=== PATIENT | male | born 1955 | race Hispanic/Latino ===

== ENCOUNTER 2018-12-18 11:20 | Emergency (ER) | payer BC ==
[2018-12-18] MEDS ORDERED: ACETAMINOPHEN 500 MG TAB ONE (12:41)
[2018-12-18] MEDS ORDERED: predniSONE 20 MG TAB ONE (12:41)
[2018-12-18] MEDS ORDERED: LIDOCAINE 1% W/EPI 1:100,000 MDV 50 ML VIAL ONE (12:41)
[2018-12-18] MEDS ORDERED: BUPIVACA 0.5%/EPI 0.0005%/PF 30 ML VIAL IV ONE (12:45)
--- NOTE | 2018-12-18 12:59 | ER ---
Nurse's Notes [facility] Name: Khurram Zimmer Jr Age: 63 yrs Sex: Male : 1955 Arrival Date: 12/18/2018 Time: 11:24 Bed 5 Private MD: Bg Johnson T Diagnosis: Acute Left side occipital headache;L side occipital neuralgia Presentation: 12/18 11:29 Presenting complaint: Patient states: LEFT NECK PAIN x1 WK. Transition of care: patient bp was not received from another setting of care. Onset of symptoms is unknown. Risk Assessment: Do you want to hurt yourself or someone else? Patient reports no desire to harm self or others. Initial Sepsis Screen: Does the patient meet any 2 criteria? No. Patient's initial sepsis screen is negative. Does the patient have a suspected source of infection? No. Patient's initial sepsis screen is negative. Care prior to arrival: None. 11:29 Method Of Arrival: Ambulatory bp 11:29 Acuity: GLORY 4 bp Triage Assessment: 12:38 Pain: Pain began. tw2 13:06 Headache History: The patient has had previous headaches and this one is similar to tw2 previous episodes. General: Appears in no apparent distress. Pain: Also complains of no other associated symptoms. Historical: - Allergies: 11:31 No Known Allergies; bp - Home Meds: 11:31 Plavix 75 mg Oral tab [Active]; metoprolol succinate 50 mg oral Tb24 [Active]; bp rosuvastatin 40 mg oral tab 1 tab once daily [Active]; losartan 25 mg oral tab 1 tab once daily [Active]; - PMHx: 11:31 Myocardial infarction; Hypertension; bp - PSHx: 11:31 CABG; bp - Immunization history:: Adult Immunizations up to date. - Social history:: Smoking status: Patient/guardian denies using tobacco. - Ebola Screening: : No symptoms or risks identified at this time. - Family history:: not pertinent. - Hospitalizations: : No recent hospitalization is reported. Screenin:05 Abuse screen: Denies threats or abuse. Denies injuries from another. Nutritional ch screening: No deficits noted. Tuberculosis screening: No symptoms or risk factors identified. Fall Risk None identified. Assessment: 12:05 General: Appears in no apparent distress. comfortable, Behavior is calm, cooperative, ch appropriate for age. Pain: Complains of pain in back of neck Pain radiates to left parietal area, occipital area and base of the skull Pain currently is 8 out of 10 on a pain scale. Neuro: Level of Consciousness is awake, alert, obeys commands, Oriented to person, place, time, situation, Assistant District Attorney are equal bilaterally Moves all extremities. Full function Gait is steady, Speech is normal, Facial symmetry appears normal, Facial symmetry: tongue is midline, Pupils are PERRLA. Respiratory: Airway is patent Respiratory effort is even, unlabored. GI: Abdomen is round non-distended, Bowel sounds present X 4 quads. Derm: Skin is pink, warm \T\ dry. Musculoskeletal: Circulation, motion, and sensation intact. Capillary refill < 3 seconds, in bilateral fingers. toes. 12:38 Reassessment: awaiting medication from pharmacy at this time. tw2 12:56 Reassessment: Patient appears in no apparent distress at this time. No changes from tw2 previously documented assessment. Patient and/or family updated on plan of care and expected duration. Pain level reassessed. Patient is alert, oriented x 3, equal unlabored respirations, skin warm/dry/pink. Vital Signs: 11:31 BP 165 / 79; Pulse 52; Resp 16; Temp 98; Pulse Ox 98% ; Weight 90.72 kg; Height 5 ft. 6 bp in. (167.64 cm); 12:05 BP 152 / 78; Pulse 55; Resp 14; Temp 98.2; Pulse Ox 98% on R/A; Pain 8/10; ch 12:56 BP 136 / 67; Pulse 48; Resp 17; Pulse Ox 99% on R/A; tw2 11:31 Body Mass Index 32.28 (90.72 kg, 167.64 cm) bp ED Course: 11:24 Patient arrived in ED. mr 11:25 Bg Johnson MD is Private Physician. mr 11:30 Triage completed. bp 11:31 Arm band placed on. bp 11:40 Mirella Schwarz, ANGEL is Primary Nurse. ch 11:42 Nigel Mendieta MD is Attending Physician. wa 12:05 Patient has correct armband on for positive identification. Bed in low position. Call light in reach. Side rails up X 1. Adult w/ patient. Pulse ox on. NIBP on. PO fluids given. 13:05 No provider procedures requiring assistance completed. Patient did not have IV access tw2 during this emergency room visit. Administered Medications: 12:31 Drug: predniSONE 40 mg Route: PO; tw2 12:56 Follow up: Response: No adverse reaction tw2 12:31 Drug: Tylenol 1000 mg Route: PO; tw2 12:56 Follow up: Response: No adverse reaction tw2 12:50 Drug: Bupivacaine-Epinephrine (0.5 %) 50 ml {Note: administered by Dr. Mendieta.} Route: tw2 Infiltration; Outcome: 12:58 Discharge ordered by . erica 13:05 Discharged to home ambulatory, with family. tw2 13:05 Condition: stable 13:05 Discharge instructions given to patient, family, Instructed on discharge instructions, follow up and referral plans. medication usage, Demonstrated understanding of instructions, follow-up care, medications, Prescriptions given X 1. 13:06 Patient left the ED. tw2 Signatures: Mirella Schwarz RN RN Monica Rogers Tara, RN RN tw2 Nigel Mendieta MD MD wa Peltier, Brian RN RN bp
--- NOTE | 2018-12-18 12:59 | EDPHYS ---
Physician Documentation [facility] Name: Khurram Zimmer Jr Age: 63 yrs Sex: Male : 1955 Arrival Date: 12/18/2018 Time: 11:24 Bed 5 Private MD: Bg Johnson T ED Physician Nigel Mendieta HPI: 12/18 12:49 This 63 yrs old Male presents to ER via Ambulatory with complaints of wa Headache, Neck Problem. 12:49 The patient complains of pain to the left base of the skull and occipital area. The wa patient describes the headache as aching. Onset: The symptoms/episode began/occurred 2 day(s) ago. Associated signs and symptoms: The patient has no apparent associated signs or symptoms. Severity of symptoms: At its worst the pain was moderate, in the emergency department the pain is unchanged. Headache History: Denies prior headaches. The symptoms are alleviated by nothing. the symptoms are aggravated by movement of heat to the left. The patient has not experienced similar symptoms in the past. The patient has not recently seen a physician. c/o pain L occipital area. worse to touch and movement. Historical: - Allergies: 11:31 No Known Allergies; bp - Home Meds: 11:31 Plavix 75 mg Oral tab [Active]; metoprolol succinate 50 mg oral Tb24 [Active]; bp rosuvastatin 40 mg oral tab 1 tab once daily [Active]; losartan 25 mg oral tab 1 tab once daily [Active]; - PMHx: 11:31 Myocardial infarction; Hypertension; bp - PSHx: 11:31 CABG; bp - Immunization history:: Adult Immunizations up to date. - Social history:: Smoking status: Patient/guardian denies using tobacco. - Ebola Screening: : No symptoms or risks identified at this time. - Family history:: not pertinent. - Hospitalizations: : No recent hospitalization is reported. ROS: 12:52 Constitutional: Negative for fever, chills, and weight loss, Eyes: Negative for injury, wa pain, redness, and discharge, ENT: Negative for injury, pain, and discharge, Neck: Negative for injury, pain, and swelling, Cardiovascular: Negative for chest pain, palpitations, and edema, Respiratory: Negative for shortness of breath, cough, wheezing, and pleuritic chest pain, Abdomen/GI: Negative for abdominal pain, nausea, vomiting, diarrhea, and constipation, Back: Negative for injury and pain, : Negative for injury, bleeding, discharge, and swelling, MS/Extremity: Negative for injury and deformity, Neuro: Negative for headache, weakness, numbness, tingling, and seizure, Psych: Negative for depression, anxiety, suicide ideation, homicidal ideation, and hallucinations. 12:52 Skin: Positive for of the L base of the skull. Exam: 12:53 Constitutional: This is a well developed, well nourished patient who is awake, alert, wa and in no acute distress. Eyes: Pupils equal round and reactive to light, extra-ocular motions intact. Lids and lashes normal. Conjunctiva and sclera are non-icteric and not injected. Cornea within normal limits. Periorbital areas with no swelling, redness, or edema. ENT: Nares patent. No nasal discharge, no septal abnormalities noted. Tympanic membranes are normal and external auditory canals are clear. Oropharynx with no redness, swelling, or masses, exudates, or evidence of obstruction, uvula midline. Mucous membranes moist. Neck: Trachea midline, no thyromegaly or masses palpated, and no cervical lymphadenopathy. Supple, full range of motion without nuchal rigidity, or vertebral point tenderness. No Meningismus. Chest/axilla: Normal chest wall appearance and motion. Nontender with no deformity. No lesions are appreciated. Cardiovascular: Regular rate and rhythm with a normal S1 and S2. No gallops, murmurs, or rubs. Normal PMI, no JVD. No pulse deficits. Respiratory: Lungs have equal breath sounds bilaterally, clear to auscultation and percussion. No rales, rhonchi or wheezes noted. No increased work of breathing, no retractions or nasal flaring. Abdomen/GI: Soft, non-tender, with normal bowel sounds. No distension or tympany. No guarding or rebound. No evidence of tenderness throughout. Back: No spinal tenderness. No costovertebral tenderness. Full range of motion. Skin: Warm, dry with normal turgor. Normal color with no rashes, no lesions, and no evidence of cellulitis. MS/ Extremity: Pulses equal, no cyanosis. Neurovascular intact. Full, normal range of motion. Neuro: Awake and alert, GCS 15, oriented to person, place, time, and situation. Cranial nerves II-XII grossly intact. Motor strength 5/5 in all extremities. Sensory grossly intact. Cerebellar exam normal. Normal gait. 12:53 Head/face: Noted is tenderness, of the left base of the skull. Vital Signs: 11:31 BP 165 / 79; Pulse 52; Resp 16; Temp 98; Pulse Ox 98% ; Weight 90.72 kg; Height 5 ft. 6 bp in. (167.64 cm); 12:05 BP 152 / 78; Pulse 55; Resp 14; Temp 98.2; Pulse Ox 98% on R/A; Pain 8/10; ch 12:56 BP 136 / 67; Pulse 48; Resp 17; Pulse Ox 99% on R/A; tw2 11:31 Body Mass Index 32.28 (90.72 kg, 167.64 cm) bp Procedures: 12:55 Performed nerve block: occipital nerve on the L side. cleaned area with chlorhexadine. wa 2 cc of 0.5% bupivacaine with epi applied to area of the nerve in a wheal. massaged for spread. pt tolerated procedure well. MDM: 11:42 Patient medically screened. wa 12:54 Differential diagnosis: point tender. also pain with movement. no chest pain, wa dizziness, or SOB. suspect occipital neuralgia on the left side. will attempt nerve block. prednisone as antiinflammatory. Data reviewed: vital signs, nurses notes. Administered Medications: 12:31 Drug: predniSONE 40 mg Route: PO; tw2 12:56 Follow up: Response: No adverse reaction tw2 12:31 Drug: Tylenol 1000 mg Route: PO; tw2 12:56 Follow up: Response: No adverse reaction tw2 12:50 Drug: Bupivacaine-Epinephrine (0.5 %) 50 ml {Note: administered by Dr. Mendieta.} Route: tw2 Infiltration; Disposition: 12/18/18 12:58 Discharged to Home. Impression: Acute Left side occipital headache, L side occipital neuralgia. - Condition is Stable. - Discharge Instructions: Occipital Neuralgia. - Prescriptions for Prednisone 20 mg Oral Tablet - take 2 tablets by ORAL route once daily for 3 days; 6 tablet. - Work release form, Medication Reconciliation Form, Thank You Letter, Antibiotic Education, Prescription Opioid Use form. - Follow up: Private Physician; When: 1 - 2 days; Reason: Re-evaluation by your physician. - Problem is new. - Symptoms have improved. - Notes: take the medication as prescribed. see your doctor within 3 days if pain does not improve Signatures: Mariah Lui, RN RN tw2 Nigel Mendieta MD MD wa Peltier, Brian, RN RN bp Corrections: (The following items were deleted from the chart) 13:06 12:58 12/18/2018 12:58 Discharged to Home. Impression: Acute Left side occipital tw2 headache; L side occipital neuralgia. Condition is Stable. Forms are Medication Reconciliation Form, Thank You Letter, Antibiotic Education, Prescription Opioid Use. Follow up: Private Physician; When: 1 - 2 days; Reason: Re-evaluation by your physician. Problem is new. Symptoms have improved. erica
[2018-12-18 13:22] VITALS: TEMP 98.2
[2018-12-18 13:24] VITALS: BP 136/67; O2SAT 99
== END 2018-12-18 13:06 | disposition home or self-care (01) ==
LOC: ER 11:20
DX: M54.81 Occipital neuralgia (principal); I10 Essential (primary) hypertension; I25.2 Old myocardial infarction
CPT/HCPCS: 99283; J7512

== ENCOUNTER 2019-08-13 05:50 | Emergency (ER) | payer BC ==
[2019-08-13] MEDS ORDERED: ACETAMINOPHEN 500 MG TAB ONE (06:20)
[2019-08-13] MEDS ORDERED: ALBUTEROL 2.5 MG/3 ML NEB SOL ONE (06:48)
[2019-08-13] MEDS ORDERED: predniSONE 20 MG TAB ONE (06:48)
--- NOTE | 2019-08-13 07:26 | ER ---
Nurse's Notes [facility] Name: Khurram Zimmer Jr Age: 63 yrs Sex: Male : 1955 Arrival Date: 08/13/2019 Time: 05:52 Bed 6 Private MD: Diagnosis: Pneumonia due to other specified bacteria Presentation: 08/13 06:02 Presenting complaint: Patient states: he's been coughing since Tuesday with a cough bb productive of mucous and he is feeling light-headed denies vomiting or congestion. Transition of care: patient was not received from another setting of care. Onset of symptoms was August 11, 2019. Risk Assessment: Do you want to hurt yourself or someone else? Patient reports no desire to harm self or others. Initial Sepsis Screen: Does the patient meet any 2 criteria? No. Patient's initial sepsis screen is negative. Does the patient have a suspected source of infection? No. Patient's initial sepsis screen is negative. Care prior to arrival: None. 06:02 Method Of Arrival: Ambulatory bb 06:02 Acuity: GLORY 3 bb Historical: - Allergies: 06:08 No Known Allergies; bb - Home Meds: 06:08 losartan 25 mg Oral tab 1 tab once daily [Active]; metoprolol succinate 50 mg Oral Tb24 bb [Active]; Plavix 75 mg Oral tab [Active]; rosuvastatin 40 mg Oral tab 1 tab once daily [Active]; - PMHx: 06:08 Hypertension; Myocardial infarction; CAD; bb - PSHx: 06:08 CABG; knee; bb - Immunization history:: Adult Immunizations up to date, Flu vaccine is not up to date. - Coronavirus screen:: The patient has NOT traveled to [place], [place], or [place] in the past 14 days. Proceed with normal triage process as indicated. - Social history:: Smoking status: Patient reports the use of cigarette tobacco products, denies chronic smoking, but will smoke occasionally. - Ebola Screening: : No symptoms or risks identified at this time. Screenin:15 Abuse screen: Denies threats or abuse. Denies injuries from another. Nutritional aa1 screening: No deficits noted. Tuberculosis screening: No symptoms or risk factors identified. Fall Risk None identified. Assessment: 06:15 General: Appears in no apparent distress. comfortable, Behavior is calm, cooperative, aa1 appropriate for age. Pain: Denies pain. Neuro: Level of Consciousness is awake, alert, obeys commands, Oriented to person, place, time, situation, Moves all extremities. Full function Gait is steady. Respiratory: Reports cough that is productive, Airway is patent Respiratory effort is even, unlabored, Respiratory pattern is regular, symmetrical, Breath sounds are clear bilaterally. GI: No signs and/or symptoms were reported involving the gastrointestinal system. : No signs and/or symptoms were reported regarding the genitourinary system. EENT: No signs and/or symptoms were reported regarding the EENT system. Derm: Skin is intact, is healthy with good turgor, Skin is pink, warm \T\ dry. Musculoskeletal: Circulation, motion, and sensation intact. Capillary refill < 3 seconds. 07:05 Reassessment: Patient appears in no apparent distress at this time. Patient and/or em family updated on plan of care and expected duration. Pain level reassessed. Patient is alert, oriented x 3, equal unlabored respirations, skin warm/dry/pink. Patient states feeling better. Patient states symptoms have improved. Vital Signs: 06:08 BP 119 / 68; Pulse 84; Resp 20 S; Temp 101.3(O); Pulse Ox 96% on R/A; Weight 95.25 kg bb (R); Height 5 ft. 6 in. (167.64 cm) (R); Pain 4/10; 07:11 BP 124 / 66; Pulse 70; Resp 16; Temp 99.9(O); Pulse Ox 97% on R/A; em 06:08 Body Mass Index 33.89 (95.25 kg, 167.64 cm) bb ED Course: 05:52 Patient arrived in ED. ds1 06:06 Triage completed. bb 06:08 Arm band placed on Patient placed in an exam room, on a stretcher, on pulse oximetry. bb 06:10 Pierce Lopez PA is PHCP. jr8 06:10 Fransisco Ruby MD is Attending Physician. jr8 06:15 Patient has correct armband on for positive identification. Bed in low position. Call aa1 light in reach. Pulse ox on. NIBP on. 07:09 Ramon Back RN is Primary Nurse. em 07:42 No provider procedures requiring assistance completed. Patient did not have IV access em during this emergency room visit. Administered Medications: 06:18 Drug: Tylenol 1000 mg Route: PO; aa1 07:10 Follow up: Response: Temperature is unchanged em 06:54 Drug: Albuterol 2.5 mg Route: Inhalation; aa1 07:10 Follow up: Response: No adverse reaction; Marked relief of symptoms em 06:54 Drug: predniSONE 40 mg Route: PO; aa1 07:10 Follow up: Response: No adverse reaction em Outcome: 07:25 Discharge ordered by MD. loja 07:42 Discharged to home ambulatory, with family. em 07:42 Condition: good 07:42 Discharge instructions given to patient, Instructed on discharge instructions, follow up and referral plans. medication usage, Demonstrated understanding of instructions, follow-up care, medications, Prescriptions given X 3. 07:43 Patient left the ED. em Signatures: Kathy Frazier RN RN aa1 Ramon Back RN RN em Sanford, Demi ds1 Emeli Ward RN RN bb Roszak, Josh, PA PA jr8
--- NOTE | 2019-08-13 07:26 | EDPHYS ---
Physician Documentation [facility] Name: Khurram Zimmer Jr Age: 63 yrs Sex: Male : 1955 Arrival Date: 08/13/2019 Time: 05:52 Bed 6 Private MD: ED Physician Fransisco Ruby HPI: 08/13 07:09 This 63 yrs old Male presents to ER via Ambulatory with complaints of Flu jr8 Symptoms. 07:09 Onset: The symptoms/episode began/occurred acutely, 2 day(s) ago. Associated signs and jr8 symptoms: Pertinent positives: cough, fever. Modifying factors: The patient symptoms are alleviated by nothing, the patient symptoms are aggravated by nothing. The patient has not experienced similar symptoms in the past. The patient has not recently seen a physician. Historical: - Allergies: 06:08 No Known Allergies; bb - Home Meds: 06:08 losartan 25 mg Oral tab 1 tab once daily [Active]; metoprolol succinate 50 mg Oral Tb24 bb [Active]; Plavix 75 mg Oral tab [Active]; rosuvastatin 40 mg Oral tab 1 tab once daily [Active]; - PMHx: 06:08 Hypertension; Myocardial infarction; CAD; bb - PSHx: 06:08 CABG; knee; bb - Immunization history:: Adult Immunizations up to date, Flu vaccine is not up to date. - Coronavirus screen:: The patient has NOT traveled to [place], [place], or [place] in the past 14 days. Proceed with normal triage process as indicated. - Social history:: Smoking status: Patient reports the use of cigarette tobacco products, denies chronic smoking, but will smoke occasionally. - Ebola Screening: : No symptoms or risks identified at this time. ROS: 07:09 Eyes: Negative for injury, pain, redness, and discharge, ENT: Negative for injury, jr8 pain, and discharge, Neck: Negative for injury, pain, and swelling, Cardiovascular: Negative for chest pain, palpitations, and edema, Abdomen/GI: Negative for abdominal pain, nausea, vomiting, diarrhea, and constipation, Back: Negative for injury and pain, MS/Extremity: Negative for injury and deformity, Skin: Negative for injury, rash, and discoloration, Neuro: Negative for headache, weakness, numbness, tingling, and seizure. 07:09 Constitutional: Positive for fever. 07:09 Respiratory: Positive for cough, Negative for dyspnea on exertion, shortness of breath, sputum production. Exam: 07:09 Eyes: Pupils equal round and reactive to light, extra-ocular motions intact. Lids and jr8 lashes normal. Conjunctiva and sclera are non-icteric and not injected. Cornea within normal limits. Periorbital areas with no swelling, redness, or edema. ENT: Nares patent. No nasal discharge, no septal abnormalities noted. Tympanic membranes are normal and external auditory canals are clear. Oropharynx with no redness, swelling, or masses, exudates, or evidence of obstruction, uvula midline. Mucous membranes moist. Neck: Trachea midline, no thyromegaly or masses palpated, and no cervical lymphadenopathy. Supple, full range of motion without nuchal rigidity, or vertebral point tenderness. No Meningismus. Cardiovascular: Regular rate and rhythm with a normal S1 and S2. No gallops, murmurs, or rubs. Normal PMI, no JVD. No pulse deficits. Abdomen/GI: Soft, non-tender, with normal bowel sounds. No distension or tympany. No guarding or rebound. No evidence of tenderness throughout. Back: No spinal tenderness. No costovertebral tenderness. Full range of motion. Skin: Warm, dry with normal turgor. Normal color with no rashes, no lesions, and no evidence of cellulitis. MS/ Extremity: Pulses equal, no cyanosis. Neurovascular intact. Full, normal range of motion. Neuro: Awake and alert, GCS 15, oriented to person, place, time, and situation. Cranial nerves II-XII grossly intact. Motor strength 5/5 in all extremities. Sensory grossly intact. Cerebellar exam normal. Normal gait. 07:09 Respiratory: the patient does not display signs of respiratory distress, Respirations: normal, symetrical, no use of accessory muscles, no grunting, no evidence of nasal flaring, no prolonged exhalations, no pursed lip breathing, no retractions, no shallow respirations, no splinting, no tachypnea, Breath sounds: wheezing: expiratory that is mild, is heard diffusely. Vital Signs: 06:08 BP 119 / 68; Pulse 84; Resp 20 S; Temp 101.3(O); Pulse Ox 96% on R/A; Weight 95.25 kg bb (R); Height 5 ft. 6 in. (167.64 cm) (R); Pain 4/10; 07:11 BP 124 / 66; Pulse 70; Resp 16; Temp 99.9(O); Pulse Ox 97% on R/A; em 06:08 Body Mass Index 33.89 (95.25 kg, 167.64 cm) bb MDM: 06:10 Patient medically screened. jr8 07:09 Differential diagnosis: viral Infection, bacterial infection, URI, bronchitis, jr8 pneumonia. Data reviewed: vital signs, nurses notes, lab test result(s), radiologic studies, plain films. Data interpreted: Pulse oximetry: on room air is 96 %. Interpretation: normal. Counseling: I had a detailed discussion with the patient and/or guardian regarding: the historical points, exam findings, and any diagnostic results supporting the discharge/admit diagnosis, lab results, radiology results, the need for outpatient follow up, a family practitioner, to return to the emergency department if symptoms worsen or persist or if there are any questions or concerns that arise at home. ED course: Small amount of hazing at base of right lung. Post treatment has mild crackle to right lung base. Suggestive of pneumonia at this time. Flu negative. Will treat as pneumonia. 08/13 06:06 Order name: Flu aa1 08/13 06:55 Order name: Influenza Screen (A ; Complete Time: 07:00 EDMS 02 06:11 Order name: XRAY Chest (1 view) jr8 Administered Medications: 06:18 Drug: Tylenol 1000 mg Route: PO; aa1 07:10 Follow up: Response: Temperature is unchanged em 06:54 Drug: Albuterol 2.5 mg Route: Inhalation; aa1 07:10 Follow up: Response: No adverse reaction; Marked relief of symptoms em 06:54 Drug: predniSONE 40 mg Route: PO; aa1 07:10 Follow up: Response: No adverse reaction em Disposition: 15:19 Co-signature as Attending Physician, Fransisco Ruby MD I agree with the assessment and tw4 plan of care. Disposition: 08/13/19 07:25 Discharged to Home. Impression: Pneumonia due to other specified bacteria. - Condition is Stable. - Discharge Instructions: Community-Acquired Pneumonia, Adult. - Prescriptions for Prednisone 20 mg Oral Tablet - take 1 tablet by ORAL route once daily for 5 days; 5 tablet. Zithromax Z- Magdy 250 mg Oral Tablet - take 1 tablet by ORAL route as directed for 5 days Day 1 - take two (2) tablets one time. Day 2, 3, 4 , 5 take one (1) tablet once daily.; 6 tablet. Albuterol Sulfate 90 mcg/actuation - inhale 1-2 puff by INHALATION route every 4-6 hours; 1 Inhaler. - Work release form, Medication Reconciliation Form, Thank You Letter, Antibiotic Education, Prescription Opioid Use form. - Follow up: Private Physician; When: 1 week; Reason: Recheck today's complaints, Continuance of care, Re-evaluation by your physician. - Problem is new. - Symptoms have improved. Signatures: Dispatcher [employer] Kathy Varela RN RN aa1 Ramon Back RN Emeli Melendrez RN RN Pierce Nuñez PA PA jr8 Fransisco Ruby MD MD tw4 Corrections: (The following items were deleted from the chart) 07:43 07:25 08/13/2019 07:25 Discharged to Home. Impression: Pneumonia due to other specified em bacteria. Condition is Stable. Forms are Work release form, Medication Reconciliation Form, Thank You Letter, Antibiotic Education, Prescription Opioid Use. Follow up: Private Physician; When: 1 week; Reason: Recheck today's complaints, Continuance of care, Re-evaluation by your physician. Problem is new. Symptoms have improved. jr8
[2019-08-13 07:50] VITALS: BP 124/66; TEMP 99.9; O2SAT 97
--- NOTE | 2019-08-13 08:24 | RAD REPORT ---
EXAM DESCRIPTION: Priscilla Single View08/13/2019 6:31 am CLINICAL HISTORY: Cough COMPARISON: 2017 FINDINGS: The lungs appear clear of acute infiltrate. The heart is mildly enlarged. Postsurgical changes involve the chest. Old right clavicular fracture IMPRESSION: No acute abnormalities displayed
== END 2019-08-13 07:43 | disposition home or self-care (01) ==
LOC: ER 05:50
DX: J15.8 Pneumonia due to other specified bacteria (principal); I10 Essential (primary) hypertension; Z72.0 Tobacco use; Z79.01 Long term (current) use of anticoagulants; Z95.1 Presence of aortocoronary bypass graft
CPT/HCPCS: 71045; 87804; 99284; J7512

== ENCOUNTER 2022-03-06 11:33 | Emergency (ER) | payer BC, OTHER ==
--- NOTE | 2022-03-06 14:21 | ER ---
Nurse's Notes [facility] Name: Khurram Zimmer Jr Age: 66 yrs Sex: Male : 1955 Arrival Date: 03/06/2022 Time: 11:36 Bed 10 Private MD: Diagnosis: SARS-associated coronavirus as the cause of diseases classified elsewhere Presentation: 03/06 11:46 Chief complaint: Patient states: I started having body aches, chills, and a runny nose iw a few days ago. Everyone at work has COVID so I went to the drive through testing at [employer] and they said it was negative but I still feel weak and tired and sick. Coronavirus screen: Client presents with at least one sign or symptom that may indicate coronavirus-19. Standard/surgical mask placed on the client. The client reports previous COVID testing was negative. Date of collection: March 04, 2022. Ebola Screen: No symptoms or risks identified at this time. Initial Sepsis Screen: Does the patient meet any 2 criteria? No. Patient's initial sepsis screen is negative. Does the patient have a suspected source of infection? No. Patient's initial sepsis screen is negative. Risk Assessment: Do you want to hurt yourself or someone else? Patient reports no desire to harm self or others. Onset of symptoms was March 04, 2022. Care prior to arrival: Medication(s) given: Nyquil \\T\\ 0930. 11:46 Method Of Arrival: Ambulatory iw 11:46 Acuity: GLORY 4 iw Triage Assessment: 11:48 General: Appears in no apparent distress. comfortable, Behavior is calm, cooperative, iw appropriate for age. Pain: Denies pain. EENT: Reports nasal congestion nasal discharge. Neuro: No deficits noted. Cardiovascular: No deficits noted. Chest pain is denied. Respiratory: Airway is patent Respiratory effort is even, unlabored, Respiratory pattern is regular, symmetrical, Denies cough, shortness of breath at rest, on exertion. GI: No deficits noted. No signs and/or symptoms were reported involving the gastrointestinal system. : No deficits noted. No signs and/or symptoms were reported regarding the genitourinary system. Derm: No deficits noted. No signs and/or symptoms reported regarding the dermatologic system. Musculoskeletal: No deficits noted. No signs and/or symptoms reported regarding the musculoskeletal system. Historical: - Allergies: 11:48 No Known Allergies; iw - Home Meds: 11:48 losartan 25 mg Oral tab 1 tab once daily [Active]; metoprolol succinate 50 mg Oral Tb24 iw [Active]; Plavix 75 mg Oral tab [Active]; rosuvastatin 40 mg Oral tab 1 tab once daily [Active]; - PMHx: 11:48 CAD; Hypertension; Myocardial infarction; iw - PSHx: 11:48 Coronary artery bypass graft; iw - Immunization history:: Adult Immunizations up to date, Client reports receiving the 2nd dose of the Covid vaccine, Client reports receiving the 1st dose of the Covid vaccine. - Social history:: Smoking status: Patient denies any tobacco usage or history of. Screenin:29 Abuse screen: Denies threats or abuse. Denies injuries from another. Nutritional iw screening: No deficits noted. Tuberculosis screening: No symptoms or risk factors identified. Fall Risk None identified. Assessment: 14:00 General: Appears in no apparent distress. distressed, Behavior is calm, cooperative. iw General: Reports feeling ill for 1-2 days. Neuro: Level of Consciousness is awake, alert, obeys commands, Oriented to person, place, time, situation, Moves all extremities. Full function. Cardiovascular: Patient's skin is warm and dry. Respiratory: Respiratory effort is even, unlabored, Respiratory pattern is regular, symmetrical. Derm: Skin is intact, is healthy with good turgor. Musculoskeletal: Range of motion: intact in all extremities. Vital Signs: 11:46 BP 129 / 67; Pulse 66; Resp 16; Temp 98.2(O); Pulse Ox 100% on R/A; Weight 90.26 kg iw (R); Height 5 ft. 5 in. (165.10 cm); Pain 0/10; 11:46 Body Mass Index 33.11 (90.26 kg, 165.10 cm) iw ED Course: 11:36 Patient arrived in ED. as 11:45 Shahriar Villarreal MD is Attending Physician. kdr 11:48 Triage completed. iw 11:48 Arm band placed on left wrist. iw 11:51 COVID swab sent to lab. iw 12:13 COVID-19 SARS RT PCR (Document "Date of Onset" if Symptomatic) Sent. zm 12:57 COVID-19 SARS RT PCR (Document "Date of Onset" if Symptomatic) Sent. zm 14:00 Patient has correct armband on for positive identification. iw 14:28 Preeti Neely, RN is Primary Nurse. iw 14:29 No provider procedures requiring assistance completed. Patient did not have IV access iw during this emergency room visit. Administered Medications: No medications were administered Medication: 14:36 VIS not applicable for this client. iw Outcome: 14:20 Discharge ordered by . anthony 14:29 Discharged to home ambulatory. iw 14:29 Condition: good 14:29 Discharge instructions given to patient, Instructed on discharge instructions, follow up and referral plans. Demonstrated understanding of instructions, follow-up care. 14:30 Patient left the ED. iw Signatures: Shahriar Villarreal MD MD kdr Martinez, Amelia as Preeti Neely, RN RN iw Shahnaz Hedrick
--- NOTE | 2022-03-06 14:21 | EDPHYS ---
Physician Documentation [facility] Name: Khurram Zimmer Jr Age: 66 yrs Sex: Male : 1955 Arrival Date: 03/06/2022 Time: 11:36 Bed 10 Private MD: ED Physician Shahriar Villarreal HPI: 03/06 15:55 This 66 yrs old Male presents to ER via Ambulatory with complaints of Weakness.kdr 15:55 The patient presents to the emergency department with weakness of the entire body, kdr generalized weakness. Onset: The symptoms/episode began/occurred gradually. Context: occurred at home, occurred while the patient was at rest. Associated signs and symptoms: Pertinent positives: chills, fever, headache. Severity of symptoms: At their worst the symptoms were very mild in the emergency department the symptoms are unchanged. Patient's baseline: Neuro: alert and fully oriented, Motor: no deficits. Current symptoms: . The patient has experienced similar episodes in the past, multiple times. Patient states that he started having body aches, chills and runny nose a few days ago. Everyone he works with has been diagnosed with COVID. He went home and had a test done at [facility] and was told that the test was negative. Despite this (on Tuesday) he began to have COVID-like symptoms.. Historical: - Allergies: 11:48 No Known Allergies; iw - Home Meds: 11:48 losartan 25 mg Oral tab 1 tab once daily [Active]; metoprolol succinate 50 mg Oral Tb24 iw [Active]; Plavix 75 mg Oral tab [Active]; rosuvastatin 40 mg Oral tab 1 tab once daily [Active]; - PMHx: 11:48 CAD; Hypertension; Myocardial infarction; iw - PSHx: 11:48 Coronary artery bypass graft; iw - Immunization history:: Adult Immunizations up to date, Client reports receiving the 2nd dose of the Covid vaccine, Client reports receiving the 1st dose of the Covid vaccine. - Social history:: Smoking status: Patient denies any tobacco usage or history of. ROS: 15:55 Constitutional: Negative for fever, chills, and weight loss, Eyes: Negative for injury, kdr pain, redness, and discharge, ENT: Negative for injury, pain, and discharge, Neck: Negative for injury, pain, and swelling, Cardiovascular: Negative for chest pain, palpitations, and edema, Respiratory: Negative for shortness of breath, cough, wheezing, and pleuritic chest pain, Abdomen/GI: Negative for abdominal pain, nausea, vomiting, diarrhea, and constipation, Back: Negative for injury and pain, : Negative for injury, bleeding, discharge, and swelling, MS/Extremity: Negative for injury and deformity, Skin: Negative for injury, rash, and discoloration, Neuro: Negative for headache, weakness, numbness, tingling, and seizure activity. Allergy/Immunology: Negative for hives, rash, and allergies, Endocrine: Negative for neck swelling, polydipsia, polyuria, polyphagia, and marked weight changes, Hematologic/Lymphatic: Negative for swollen nodes, abnormal bleeding, and unusual bruising. Exam: 15:55 Constitutional: This is a well developed, well nourished patient who is awake, alert, kdr and in no acute distress. Head/Face: Normocephalic, atraumatic. Neck: Trachea midline, no thyromegaly or masses palpated, and no cervical lymphadenopathy. Supple, full range of motion without nuchal rigidity, or vertebral point tenderness. No Meningismus. Chest/axilla: Normal chest wall appearance and motion. Nontender with no deformity. No lesions are appreciated. Cardiovascular: Regular rate and rhythm with a normal S1 and S2. No gallops, murmurs, or rubs. Normal PMI, no JVD. No pulse deficits. Respiratory: Lungs have equal breath sounds bilaterally, clear to auscultation and percussion. No rales, rhonchi or wheezes noted. No increased work of breathing, no retractions or nasal flaring. Abdomen/GI: Soft, non-tender, with normal bowel sounds. No distension or tympany. No guarding or rebound. No evidence of tenderness throughout. Back: No spinal tenderness. No costovertebral tenderness. Full range of motion. Skin: Warm, dry with normal turgor. Normal color with no rashes, no lesions, and no evidence of cellulitis. MS/ Extremity: Pulses equal, no cyanosis. Neurovascular intact. Full, normal range of motion. Neuro: Awake and alert, GCS 15, oriented to person, place, time, and situation. Cranial nerves II-XII grossly intact. Motor strength 5/5 in all extremities. Sensory grossly intact. Cerebellar exam normal. Normal gait. Vital Signs: 11:46 BP 129 / 67; Pulse 66; Resp 16; Temp 98.2(O); Pulse Ox 100% on R/A; Weight 90.26 kg iw (R); Height 5 ft. 5 in. (165.10 cm); Pain 0/10; 11:46 Body Mass Index 33.11 (90.26 kg, 165.10 cm) iw MDM: 14:20 Patient medically screened. kdr 15:55 Data reviewed: vital signs, nurses notes, lab test result(s), radiologic studies. kdr Counseling: I had a detailed discussion with the patient and/or guardian regarding: the historical points, exam findings, and any diagnostic results supporting the discharge/admit diagnosis, lab results, radiology results. 03/06 12:02 Order name: COVID-19 SARS RT PCR (Document "Date of Onset" if Symptomatic); Complete zm Time: 13:50 Administered Medications: No medications were administered Disposition Summary: 03/06/22 14:20 Discharge Ordered Location: Home kdr Problem: new kdr Symptoms: have improved kdr Condition: Stable kdr Diagnosis - SARS-associated coronavirus as the cause of diseases classified elsewhere kdr Followup: kdr - With: Private Physician - When: 2 - 3 days - Reason: If symptoms return, Further diagnostic work-up, Recheck today's complaints, Continuance of care, Re-evaluation by your physician Discharge Instructions: - Discharge Summary Sheet kdr - Form - Excuse from Work, School, or Physical Activity kdr - COVID-19 kdr - Things to Know about the COVID-19 Pandemic - [facility] kdr - 10 Things You Can Do to Manage Your COVID-19 Symptoms at Home - [facility] kdr - Viral Illness, Adult kdr - COVID-19: Quarantine vs. Isolation - [facility] kdr - Prevent the Spread of COVID-19 if You Are Sick - [facility] kdr Forms: - Medication Reconciliation Form kdr - Thank You Letter kdr - SBAR form iw - Work release form iw Signatures: Dispatcher [employer] Shahriar Jacobsen MD MD kdr Preeti Neely RN RN iw
[2022-03-06 16:08] VITALS: BP 129/67; TEMP 98.2; O2SAT 100
== END 2022-03-06 14:30 | disposition home or self-care (01) ==
LOC: ER 11:33
DX: U07.1 COVID-19 (principal); I10 Essential (primary) hypertension; Z95.1 Presence of aortocoronary bypass graft
CPT/HCPCS: 99283; U0003

== ENCOUNTER 2022-07-12 15:06 | Emergency (ER) | payer MEDICARE ==
--- OUTSIDE RECORDS SUMMARY | 2022-07-12 15:09 | XMS REPORT | Continuity of Care Document ---
:1955 Author Organization [facility] Address [address] Doe [address] [place] [id number] Care Team Providers Name Role Phone Unavailable Unavailable Unavailable Payers Payer Name Policy Type Policy Number Effective Date Expiration Date S yenni [facility] 2022-07-04 (MEDICARE 00:00:00 REPLACEMENT HMO) Problems This patient has no known problems. Allergies, Adverse Reactions, Alerts This patient has no known allergies or adverse reactions. Medications This patient has no known medications. Procedures This patient has no known procedures. Encounters Start End Encounter Admission Attending Care Care Encounter Source Date/Time Date/Time Type Type Clinicians Facility Department ID 2022-05-17 2022-05-17 Outpatient [facility] [id number] [facility] 00:00:00 00:00:00 [id number] [facility] Results This patient has no known results.
[2022-07-12] MEDS ORDERED: LIDOCAINE VISCOUS 2% SOLN 15 ML UDC ONE (16:05)
[2022-07-12] MEDS ORDERED: MAGNES/ALUMIN/SIMET 30ML UCUP ONE (16:05)
[2022-07-12 16:16] LABS: Absolute Lymphocytes (CBC) 1.8 K/uL (0.7-4.9); Hematocrit 40.6 % (39.6-49.0); Lymphocytes % 30.1 % (15.3-44.8); MCV 88.5 fL (80-100); MPV 7.7 fL (7.6-11.3); RBC Red Blood Cell Count 4.59 M/uL (4.33-5.43)
[2022-07-12 16:19] LABS: Protime INR 1.01
--- NOTE | 2022-07-12 16:36 | RAD REPORT ---
EXAM DESCRIPTION: RAD - Chest Single View - 07/12/2022 4:25 pm CLINICAL HISTORY: CHEST PAIN Chest pain. COMPARISON: Chest Single View dated 08/13/2019; Chest Pa And Lat (2 Views) dated 06/17/2017; Chest Si ngle View dated 05/23/2016; CHEST PA AND LAT 2 VIEW dated 12/16/2014 FINDINGS: Portable technique limits examination quality. The lungs are grossly clear. The heart is normal in size. No displaced fractures.Sternotomy wires. IMPRESSION: No acute intrathoracic process suspected.
[2022-07-12 16:55] LABS: ALT/SGPT 24 U/L (16-61); AST/SGOT 15 U/L (15-37); Albumin 3.8 g/dL (3.4-5.0); Alkaline Phosphatase 79 U/L (45-117); BUN Blood Urea Nitrogen 15 mg/dL (7-18); Bicarbonate 25 mmol/L (21-32); Bilirubin Total 0.3 mg/dL (0.2-1.0); Glomerular Filtration Rate 93 ml/min (=/>90); Glucose Level 144 mg/dL (74-106); Magnesium 2.2 mg/dL (1.6-2.4); NT PRO-BNP 178 pg/mL (<125); Potassium 3.6 mmol/L (3.5-5.1); Protein, Total 8.2 g/dL (6.4-8.2); Sodium Level 138 mmol/L (136-145); Troponin High Sensitivity 29.6 pg/mL (<58.9)
[2022-07-12 17:04] LABS: Bilirubin Direct < 0.1 mg/dL (0-0.2)
--- NOTE | 2022-07-12 18:27 | RAD REPORT ---
EXAM DESCRIPTION: US - Abdomen Exam Limited - 07/12/2022 6:17 pm CLINICAL HISTORY: EPIGASTRIC PAIN COMPARISON: Abdomen Exam Limited dated 05/23/2016 FINDINGS: The gallbladder demonstrates small gallstones with acoustic shadowing. No pericholecystic fluid or gallbladder wall thickening. The common bile duct is normal measuring 3 mm. The liver demonstrates no findings of intrahepatic biliary dilatation. IMPRESSION: Cholelithiasis.
--- NOTE | 2022-07-12 19:38 | EDPHYS ---
Physician Documentation [facility] Name: Khurram Zimmer Jr Age: 66 yrs Sex: Male : 1955 Arrival Date: 07/12/2022 Time: 15:10 Bed 7 Private MD: Tino [facility] ED Physician Mikey Starr HPI: 07/12 15:40 This 66 yrs old Male presents to ER via Ambulatory with complaints of cp Heartburn. 15:40 The patient or guardian reports chest pain that is located primarily in the substernal cp area, epigastric area. Onset: 1 week(s) ago. 15:40 The pain does not radiate. Associated signs and symptoms: Pertinent positives: nausea, cp Pertinent negatives: diaphoresis, lower extremity pain, lower extremity swelling, shortness of breath, syncope, vomiting. The chest pain is described as burning. Duration: The patient or guardian reports multiple episodes, that wax and wane. Modifying factors: the symptoms are aggravated by eating. Severity of pain: in the emergency department the pain has improved moderately. Historical: - Allergies: 15:18 No Known Allergies; ss - PMHx: 15:18 CAD; Hypertension; Myocardial infarction; ss - PSHx: 15:18 Coronary artery bypass graft; ss - Immunization history:: Client reports receiving the 2nd dose of the Covid vaccine. - Social history:: Smoking status: Patient reports the use of cigarette tobacco products, 2 cig/ day. ROS: 15:45 Constitutional: Negative for body aches, chills, fever, poor PO intake. cp 15:45 Eyes: Negative for injury, pain, redness, and discharge. cp 15:45 ENT: Negative for drainage from ear(s), ear pain, sore throat, difficulty swallowing, difficulty handling secretions. 15:45 Cardiovascular: Positive for chest pain, Negative for edema, palpitations. 15:45 Respiratory: Negative for cough, shortness of breath, wheezing. 15:45 Abdomen/GI: Positive for abdominal pain, nausea, of the epigastric area, Negative for diarrhea, constipation, anorexia. 15:45 Back: Negative for pain at rest, pain with movement. 15:45 Neuro: Negative for altered mental status, dizziness, headache, numbness, weakness. 15:45 All other systems are negative. Exam: 15:50 Constitutional: The patient appears in no acute distress, alert, awake, cp non-diaphoretic, non-toxic, well developed, well nourished. 15:50 Head/Face: Normocephalic, atraumatic. cp 15:50 Eyes: Periorbital structures: appear normal, Conjunctiva: normal, no exudate, no injection, Sclera: no appreciated abnormality, Lids and lashes: appear normal, bilaterally. 15:50 ENT: External ear(s): are unremarkable, Nose: is normal, Mouth: Lips: moist, Oral mucosa: moist, Posterior pharynx: Airway: no evidence of obstruction, patent. 15:50 Neck: ROM/movement: is normal, is supple, without pain, no range of motions limitations. 15:50 Chest/axilla: Inspection: normal, Palpation: is normal, no crepitus, no tenderness. 15:50 Cardiovascular: Rate: normal, Rhythm: regular, Edema: is not appreciated, JVD: is not appreciated. 15:50 Respiratory: the patient does not display signs of respiratory distress, Respirations: cp normal, no use of accessory muscles, no retractions, labored breathing, is not present, Breath sounds: are clear throughout, no decreased breath sounds, no stridor, no wheezing. 15:50 Abdomen/GI: Inspection: abdomen appears normal, Bowel sounds: active, all quadrants, Palpation: soft, in all quadrants, mild abdominal tenderness, in the epigastric area, rebound tenderness, is not appreciated, involuntary guarding, is not appreciated. 15:50 Back: pain, is absent, ROM is normal. 15:50 Neuro: Orientation: to person, place \T\ time. Mentation: is normal, Motor: moves all fours, strength is normal, Sensation: is normal. 16:20 ECG was reviewed by the Attending Physician. cp Vital Signs: 15:17 BP 159 / 70; Pulse 71; Resp 16; Temp 98.1(TE); Pulse Ox 100% on R/A; Weight 91.17 kg; ss Height 5 ft. 4 in. (162.56 cm); Pain 8/10; 16:32 BP 135 / 77; Pulse 57; Resp 17; Pulse Ox 100% ; ll1 18:00 BP 139 / 75; Pulse 50; ll1 18:45 BP 126 / 65; ll1 19:48 BP 140 / 66; Pulse 50; Resp 18 S; Pulse Ox 99% on R/A; as6 15:17 Body Mass Index 34.50 (91.17 kg, 162.56 cm) ss MDM: 15:22 Patient medically screened. shara 16:00 Differential diagnosis: acute myocardial infarction, cholecystitis, Cholelithiasis cp esophagitis, gastritis, pancreatitis, peptic ulcer disease, stable angina, unstable angina. 19:35 Data reviewed: vital signs, nurses notes, lab test result(s), EKG, radiologic studies, cp plain films, ultrasound, and as a result, I will discharge patient. 19:35 Counseling: I had a detailed discussion with the patient and/or guardian regarding: the cp historical points, exam findings, and any diagnostic results supporting the discharge/admit diagnosis, lab results, radiology results, the need for outpatient follow up, for definitive care, a general surgeon. 19:35 ED course: VSS. Pain improved with meds. Will discharge to home for continued cp monitoring. 07/12 15:39 Order name: Basic Metabolic Panel; Complete Time: 17:31 cp 07/12 17:31 Interpretation: Normal except: CL 108; GLUC 144. cp 07/12 15:39 Order name: CBC with Diff; Complete Time: 16:44 cp 07/12 16:44 Interpretation: Reviewed. cp 07/12 15:39 Order name: LFT's; Complete Time: 17:31 cp 07/12 17:31 Interpretation: Normal except: GLOB 4.4; A/G 0.9. cp 07/12 15:39 Order name: Magnesium; Complete Time: 17:31 cp 07/12 15:39 Order name: NT PRO-BNP; Complete Time: 17:31 cp 07/12 15:39 Order name: PT-INR; Complete Time: 16:33 cp 07/12 16:33 Interpretation: Reviewed. cp 07/12 15:39 Order name: Troponin HS; Complete Time: 17:31 cp 07/12 17:31 Interpretation: Troponin HS 29.6; Reviewed. cp 07/12 15:39 Order name: XRAY Chest (1 view); Complete Time: 16:44 cp 07/12 15:39 Order name: EKG; Complete Time: 15:40 cp 07/12 15:39 Order name: Cardiac monitoring; Complete Time: 16:32 cp 07/12 15:39 Order name: EKG - Nurse/Tech; Complete Time: 16:22 cp 07/12 17:32 Order name: US Abdomen Limited; Complete Time: 18:30 cp 07/12 18:30 Interpretation: Report reviewed. cp 07/12 18:50 Order name: Troponin High Sensitivity; Complete Time: 19:29 cp 07/12 15:39 Order name: IV Saline Lock; Complete Time: 15:59 cp 07/12 15:39 Order name: Labs collected and sent; Complete Time: 15:59 cp 07/12 15:39 Order name: O2 Per Protocol; Complete Time: 15:47 cp 07/12 15:39 Order name: O2 Sat Monitoring; Complete Time: 15:47 cp 07/12 17:39 Order name: NPO; Complete Time: 17:52 cp EC:20 Rate is 53 beats/min. Rhythm is regular. LA interval is normal. QRS interval is normal. cp QT interval is normal. T waves are Inverted in leads aVL, aVR. Interpreted by me. Reviewed by me. Administered Medications: 16:25 Drug: GI Cocktail without - (Maalox Suspension 30 ml, Lidocaine Liquid 2 % 15 ll1 ml) Route: PO; 19:57 Follow up: Response: No adverse reaction as6 Disposition Summary: 07/12/22 19:37 Discharge Ordered Location: Home cp Problem: new cp Symptoms: have improved cp Condition: Stable cp Diagnosis - Other cholelithiasis without obstruction cp - Epigastric pain cp - Chest pain, unspecified cp Followup: cp - With: Anastacio Godfrey MD - When: 1 - 2 days - Reason: Recheck today's complaints Discharge Instructions: - Abdominal Pain, Adult cp - Nonspecific Chest Pain, Adult cp - Discharge Summary Sheet ll1 - Cholelithiasis cp - Aspirin and Your Heart cp Forms: - SBAR form ll1 - Medication Reconciliation Form cp - Thank You Letter cp - Antibiotic Education cp - Prescription Opioid Use cp Prescriptions: - Protonix 40 mg Oral Tablet - take 1 tablet by ORAL route once daily; 30 tablet; Refills: 0, Product cp Selection Permitted - Zofran 4 mg Oral Tablet - take 1 tablet by ORAL route every 12 hours As needed; 20 tablet; Refills: 0, cp Product Selection Permitted - dicyclomine 20 mg Oral Tablet - take 1 tablet by ORAL route 4 times per day; 30 tablet; Refills: 0, Product cp Selection Permitted Signatures: Dispatcher [employer] EDMikey Melendrez MD MD cha Smirch, Shelby RN RN ss Mikey Hickey PA PA cp Lewis, Lynsay, RN RN ll1 Fede Ross RN as6 Corrections: (The following items were deleted from the chart) 07/13 03:01 07/12 16:20 ECG was reviewed by the Attending Physician. cp cp 07/13 19:28 03:00 Rate is 53 beats/min. Rhythm is regular. LA interval is normal. QRS interval is cp normal. QT interval is normal. T waves are Inverted in leads aVL, aVR. Interpreted by me. Reviewed by me. cp
--- NOTE | 2022-07-12 19:38 | ER ---
Nurse's Notes [facility] Name: Khurram Zimmer Jr Age: 66 yrs Sex: Male : 1955 Arrival Date: 07/12/2022 Time: 15:10 Bed 7 Private MD: Joshua Jiménez Diagnosis: Other cholelithiasis without obstruction;Epigastric pain;Chest pain, unspecified Presentation: 07/12 15:17 Chief complaint: Patient states: heartburn after eating x 1 week. Coronavirus screen: ss Client denies travel out of the [place] in the last 14 days. Ebola Screen: Patient denies exposure to infectious person. Patient denies travel to an Ebola-affected area in the 21 days before illness onset. Initial Sepsis Screen: Does the patient meet any 2 criteria? No. Patient's initial sepsis screen is negative. Does the patient have a suspected source of infection? No. Patient's initial sepsis screen is negative. Risk Assessment: Do you want to hurt yourself or someone else? Patient reports no desire to harm self or others. Onset of symptoms was July 05, 2022. 15:17 Method Of Arrival: Ambulatory ss 15:17 Acuity: GLORY 3 ss Triage Assessment: 19:56 General: Appears in no apparent distress. Behavior is calm, cooperative. Pain: Denies as6 pain. Historical: - Allergies: 15:18 No Known Allergies; ss - PMHx: 15:18 CAD; Hypertension; Myocardial infarction; ss - PSHx: 15:18 Coronary artery bypass graft; ss - Immunization history:: Client reports receiving the 2nd dose of the Covid vaccine. - Social history:: Smoking status: Patient reports the use of cigarette tobacco products, 2 cig/ day. Screenin:22 Abuse screen: Denies threats or abuse. Nutritional screening: No deficits noted. ll1 Tuberculosis screening: No symptoms or risk factors identified. 18:46 [facility] ED Fall Risk Assessment (Adult) Score/Fall Risk Level 0 - 2 = Low Risk ll1 Oriented to surroundings, Maintained a safe environment, Educated pt \T\ family on fall prevention, incl call for assistance when getting out of bed, Hourly rounding (assess needs \T\ fall precautionary measures) done. Assessment: 16:00 Reassessment: No changes from previously documented assessment. Patient and/or family ss updated on plan of care and expected duration. Pain level reassessed. Patient is alert, oriented x 3, equal unlabored respirations, skin warm/dry/pink. 16:33 Reassessment: No changes from previously documented assessment. Patient and/or family ll1 updated on plan of care and expected duration. Pain level reassessed. Patient is alert, oriented x 3, equal unlabored respirations, skin warm/dry/pink. 17:30 Reassessment: No changes from previously documented assessment. Patient and/or family ll1 updated on plan of care and expected duration. Pain level reassessed. Patient is alert, oriented x 3, equal unlabored respirations, skin warm/dry/pink. 18:57 Reassessment: No changes from previously documented assessment. Patient and/or family ll1 updated on plan of care and expected duration. Pain level reassessed. Patient is alert, oriented x 3, equal unlabored respirations, skin warm/dry/pink. Patient states feeling better. Vital Signs: 15:17 BP 159 / 70; Pulse 71; Resp 16; Temp 98.1(TE); Pulse Ox 100% on R/A; Weight 91.17 kg; ss Height 5 ft. 4 in. (162.56 cm); Pain 8/10; 16:32 BP 135 / 77; Pulse 57; Resp 17; Pulse Ox 100% ; ll1 18:00 BP 139 / 75; Pulse 50; ll1 18:45 BP 126 / 65; ll1 19:48 BP 140 / 66; Pulse 50; Resp 18 S; Pulse Ox 99% on R/A; as6 15:17 Body Mass Index 34.50 (91.17 kg, 162.56 cm) ED Course: 15:10 Patient arrived in ED. mr 15:10 Joshua Jiménez DO is Private Physician. mr 15:15 Mikey Hickey PA is PHCP. cp 15:15 Mikey Starr MD is Attending Physician. cp 15:18 Triage completed. ss 15:18 Arm band placed on right wrist. ss 15:22 Madison Ornelas, ANGEL is Primary Nurse. ll1 15:22 Patient placed in an exam room, on a stretcher. ll1 15:50 Inserted saline lock: 22 gauge in right forearm, using aseptic technique. Blood ss collected. 16:22 EKG done, by ED staff. bc6 16:27 XRAY Chest (1 view) In Process Unspecified. EDMS 16:33 Patient has correct armband on for positive identification. Bed in low position. Call ll1 light in reach. Side rails up X2. Client placed on continuous cardiac and pulse oximetry monitoring. NIBP monitoring applied. photogrammetric engineer on. 18:19 US Abdomen Limited In Process Unspecified. EDMS 18:46 No provider procedures requiring assistance completed. ll1 18:57 Troponin High Sensitivity Sent. ll1 19:36 Anastacio Godfrey MD is Referral Physician. cp 19:56 IV discontinued, intact, bleeding controlled, No redness/swelling at site. Pressure as6 dressing applied. Administered Medications: 16:25 Drug: GI Cocktail without - (Maalox Suspension 30 ml, Lidocaine Liquid 2 % 15 ll1 ml) Route: PO; 19:57 Follow up: Response: No adverse reaction as6 Medication: 16:33 VIS not applicable for this client. ll1 Outcome: 19:37 Discharge ordered by MD. cp 19:56 Discharged to home ambulatory. as6 19:56 Condition: stable 19:56 Discharge instructions given to patient, Instructed on discharge instructions, follow up and referral plans. medication usage, Demonstrated understanding of instructions, follow-up care, medications, Prescriptions given X 3. 19:57 Patient left the ED. as6 Signatures: Dispatcher [employer] [facility] Monica RogersZaria padilla, RN RN Mikey Stratton PA PA cp Lewis, Lynsay, RN RN ll1 Fede Ross RN RN as6 Tamika Mosqueda [facility]
[2022-07-12 21:21] VITALS: BP 140/66; O2SAT 99
--- NOTE | 2022-07-13 14:24 | EKG ---
Test Date: 2022-07-12 Test Time: 16:15:02 Screedman/Laborer: DIEGO MEASUREMENT RESULTS: Intervals: Rate: 53 NC: 156 QRSD: 90 QT: 414 QTc: 388 [place]: P: 43 NC: 156 QRS: 30 T: 87 INTERPRETIVE STATEMENTS: Sinus bradycardia Anteroseptal infarct, age undetermined Abnormal ECG Compared to ECG 06/17/2017 13:02:50 No significant changes Electronically Signed On 07-13-22 14:22:03 PRINCIPAL NETWORK ARCHITECT by Roberto Aguilar
== END 2022-07-12 19:57 | disposition home or self-care (01) ==
LOC: ER 15:06
DX: K80.80 Other cholelithiasis without obstruction (principal); R10.13 Epigastric pain; I10 Essential (primary) hypertension; F17.210 Nicotine dependence, cigarettes, uncomplicated; Z95.1 Presence of aortocoronary bypass graft
CPT/HCPCS: 36415; 71045; 76705; 80048; 80076; 83735; 83880; 84484; 85025; 85610; 93005; 99284

== ENCOUNTER 2022-07-19 08:12 | Emergency (ER) | payer MEDICARE ==
--- OUTSIDE RECORDS SUMMARY | 2022-07-19 08:14 | XMS REPORT | Continuity of Care Document ---
:[address] [facility] t Address [address] Doe [address] [place] [id number] Care Team Providers Name Role Phone Unavailable Unavailable Unavailable Payers Payer Name Policy Type Policy Number Effective Date Expiration Date S yenni [place] 2022 (MEDICARE 00:00:00 REPLACEMENT HMO) Problems This patient has no known problems. Allergies, Adverse Reactions, Alerts This patient has no known allergies or adverse reactions. Medications This patient has no known medications. Procedures This patient has no known procedures. Encounters Start End Encounter Admission Attending Care Care Encounter Source Date/Time Date/Time Type Type Clinicians Facility Department ID 2022-05-17 2022-05-17 Outpatient [facility] [id number] [facility] 00:00:00 00:00:00 [id number] [facility] Results This patient has no known results.
[2022-07-19] MEDS ORDERED: HYDROCODONE/APAP 5/325 MG TAB ONE (08:36)
[2022-07-19] MEDS ORDERED: DIAZEPAM 2 MG TABLET ONE (08:36)
--- NOTE | 2022-07-19 08:55 | RAD REPORT ---
EXAM DESCRIPTION: US - Extremity Venous Uni Ltd - 07/19/2022 8:42 am CLINICAL HISTORY: Pain COMPARISON: None. TECHNIQUE: Real-time sonographic evaluation of the left lower extremity deep venous system was perfo rmed. FINDINGS: Normal compressibility, flow augmentation, phasic flow and spontaneous flow is identified in the left lower extremity deep venous system. No intraluminal filling defects seen. IMPRESSION: No DVT in the left lower extremity.
--- NOTE | 2022-07-19 09:43 | RAD REPORT ---
EXAM DESCRIPTION: RAD - Lumbar Spine 3 Views - 07/19/2022 9:09 am CLINICAL HISTORY: back pain, sciatica COMPARISON: No comparisons FINDINGS: No acute fracture. Minimal dextroscoliotic curvature centered at L3. Endplate spurring is present at L2-3, L3-4. IMPRESSION: No acute osseous abnormality involving the lumbar spine.
--- NOTE | 2022-07-19 10:02 | ER ---
Nurse's Notes [facility] Name: Khurram Zimmer Jr Age: 66 yrs Sex: Male : 1955 Arrival Date: 07/19/2022 Time: 08:13 Bed 12 Private MD: Joshua Jiménez Diagnosis: Sciatica, left side Presentation: 07/19 08:27 Chief complaint: Patient states: I have this pain that starts in my left hip since kr3 and it has gotten worse every day. I have tried using pain patches from the store but nothing has helped. Coronavirus screen: Vaccine status: Patient reports receiving the 2nd dose of the covid vaccine. Client denies travel out of the [place] in the last 14 days. Ebola Screen: Patient denies travel to an Ebola-affected area in the 21 days before illness onset. Initial Sepsis Screen: Does the patient meet any 2 criteria? No. Patient's initial sepsis screen is negative. Does the patient have a suspected source of infection? No. Patient's initial sepsis screen is negative. Risk Assessment: Do you want to hurt yourself or someone else? Patient reports no desire to harm self or others. Onset of symptoms was July 15, 2022. 08:27 Method Of Arrival: Ambulatory kr3 08:27 Acuity: GLORY 4 kr3 Triage Assessment: 08:30 General: Appears in no apparent distress. uncomfortable, Behavior is calm, cooperative, kr3 appropriate for age. Pain: Complains of pain in left hip that radiates down the left leg. 08:30 Pain:. kr3 Historical: - Allergies: 08:29 No Known Allergies; kr3 - PMHx: 08:29 CAD; Hypertension; Myocardial infarction; kr3 - PSHx: 08:29 Coronary artery bypass graft; kr3 - Immunization history:: Adult Immunizations up to date. - Social history:: Smoking status: Patient reports the use of cigarette tobacco products, smokes 0.25 packs per day. Screenin:06 [facility] ED Fall Risk Assessment (Adult) History of falling in the last 3 months, kr3 including since admission No falls in past 3 months (0 pts) Confusion or Disorientation No (0 pts) Intoxicated or Sedated No (0 pts) Impaired Gait No (0 pts) Mobility Assist Device Used No (0 pt) Altered Elimination No (0 pt) Score/Fall Risk Level 0 - 2 = Low Risk. Abuse screen: Denies threats or abuse. Nutritional screening: No deficits noted. Tuberculosis screening: No symptoms or risk factors identified. Assessment: 09:19 Reassessment: Patient appears in no apparent distress at this time. Patient and/or kr3 family updated on plan of care and expected duration. Pain level reassessed. Patient is alert, oriented x 3, equal unlabored respirations, skin warm/dry/pink. patient states "medication did not help". Vital Signs: 08:27 BP 148 / 74; Pulse 57; Resp 18; Temp 98.6(O); Pulse Ox 98% on R/A; Weight 92.99 kg; kr3 Height 5 ft. 4 in. (162.56 cm); Pain 8/10; 09:19 BP 129 / 79; Pulse 55; Resp 18; Pulse Ox 97% on R/A; kr3 10:12 BP 134 / 80; Pulse 52; Resp 18; Pulse Ox 97% on R/A; kr3 08:27 Body Mass Index 35.19 (92.99 kg, 162.56 cm) kr3 ED Course: 08:13 Patient arrived in ED. am2 08:13 Joshua Jiménez DO is Private Physician. am2 08:17 Kenji John PA is PHCP. jmm 08:17 Sawyer Hyman MD is Attending Physician. jmm 08:27 Trinity Thomson, ANGEL is Primary Nurse. kr3 08:29 Triage completed. kr3 08:31 Arm band placed on right wrist. Patient placed in an exam room, on a stretcher. kr3 08:31 Bed in low position. Call light in reach. Side rails up X 1. kr3 08:44 US Extremity Venous Unilateral Ltd In Process Unspecified. EDMS 09:10 Lumbar Spine (3 Views) XRAY In Process Unspecified. EDMS 10:01 Joshua Jiménez DO is Referral Physician. jmm 10:12 No provider procedures requiring assistance completed. Patient did not have IV access kr3 during this emergency room visit. Administered Medications: 08:37 Drug: HYDROcodone-acetaminophen 5 mg-325 mg 1 tabs Route: PO; kr3 10:13 Follow up: Response: No adverse reaction; RASS: Alert and Calm (0) kr3 08:37 Drug: Valium (diazepam) 2 mg Route: PO; kr3 10:13 Follow up: Response: No adverse reaction; RASS: Alert and Calm (0) kr3 Medication: 10:13 VIS not applicable for this client. kr3 Outcome: 10:02 Discharge ordered by . kendra 10:12 Discharged to home ambulatory. kr3 10:12 Condition: stable 10:12 Discharge instructions given to patient, Instructed on discharge instructions, follow up and referral plans. medication usage, Demonstrated understanding of instructions, follow-up care, medications, Prescriptions given X 2. 10:13 Patient left the ED. kr3 Signatures: Dispatcher [employer] EDMS Kenji John PA PA jmm Moreno, Amanda am2 Reid, Kelley, RN RN kr3 Corrections: (The following items were deleted from the chart) 08:31 08:30 Pain: Complains of pain in left hip kr3 kr3
--- NOTE | 2022-07-19 10:02 | EDPHYS ---
Physician Documentation [facility] Name: Khurram Zimmer Jr Age: 66 yrs Sex: Male : 1955 Arrival Date: 07/19/2022 Time: 08:13 Bed 12 Private MD: Kishor Jiménezh ED Physician Sawyer Hyman HPI: 07/19 08:22 This 66 yrs old Male presents to ER via Ambulatory with complaints of Low Back jmm Pain, Leg Pain - left. 08:22 The patient presents with pain that is acute. The symptoms are located in the low back. jmm The pain radiates to the left leg. Onset: The symptoms/episode began/occurred gradually, 4 day(s) ago. Modifying factors: The patient symptoms are alleviated by nothing, the patient symptoms are aggravated by any movement. Associated signs and symptoms: Pertinent negatives: abdominal pain, chest pain, constipation, dysuria, fever, headache, hematuria, incontinence, nausea, numbness, tingling, urinary retention, vomiting, weakness. The patient has not experienced similar symptoms in the past. Historical: - Allergies: 08:29 No Known Allergies; kr3 - PMHx: 08:29 CAD; Hypertension; Myocardial infarction; kr3 - PSHx: 08:29 Coronary artery bypass graft; kr3 - Immunization history:: Adult Immunizations up to date. - Social history:: Smoking status: Patient reports the use of cigarette tobacco products, smokes 0.25 packs per day. ROS: 08:22 Constitutional: Negative for fever, chills, and weight loss, Cardiovascular: Negative jmm for chest pain, palpitations, and edema, Respiratory: Negative for shortness of breath, cough, wheezing, and pleuritic chest pain. 08:22 Back: Positive for pain with movement, radiated pain. 08:22 All other systems are negative. Exam: 08:22 Constitutional: This is a well developed, well nourished patient who is awake, alert, jmm and in no acute distress. Head/Face: atraumatic. Eyes: EOMI, no conjunctival erythema appreciated ENT: Moist Mucus Membranes Neck: Trachea midline, Supple Chest/axilla: Normal chest wall appearance and motion. Cardiovascular: Regular rate and rhythm. No edema appreciated Respiratory: Normal respirations, no respiratory distress appreciated Abdomen/GI: Non distended 08:22 Back: pain, that is mild, of the left low back. 08:22 Musculoskeletal/extremity: ROM: intact in all extremities. 08:22 Skin: Appearance: Color: normal in color. 08:22 Neuro: Orientation: is normal, Mentation: is normal, Memory: is normal. 08:22 Neuro: Extensor hallucis longus intact bilaterally. 08:22 Psych: Behavior/mood is pleasant, cooperative. Vital Signs: 08:27 BP 148 / 74; Pulse 57; Resp 18; Temp 98.6(O); Pulse Ox 98% on R/A; Weight 92.99 kg; kr3 Height 5 ft. 4 in. (162.56 cm); Pain 8/10; 09:19 BP 129 / 79; Pulse 55; Resp 18; Pulse Ox 97% on R/A; kr3 10:12 BP 134 / 80; Pulse 52; Resp 18; Pulse Ox 97% on R/A; kr3 08:27 Body Mass Index 35.19 (92.99 kg, 162.56 cm) kr3 MDM: 08:22 Patient medically screened. [facility] 10:00 Data reviewed: vital signs, nurses notes. I considered the following discharge [facility] prescriptions or medication management in the emergency department Medications were administered in the Emergency Department. See MAR. Test considered but Not performed: MRI: No signs of cord compression or cauda equina. Care significantly affected by the following chronic conditions: CAD, hypertension. Care significantly affected by the following Social Determinants of Health:. 07/19 08:23 Order name: Lumbar Spine (3 Views) XRAY; Complete Time: 09:50 [facility] 07/19 08:23 Order name: US Extremity Venous Unilateral Ltd; Complete Time: 09:50 [facility] Administered Medications: 08:37 Drug: HYDROcodone-acetaminophen 5 mg-325 mg 1 tabs Route: PO; kr3 10:13 Follow up: Response: No adverse reaction; RASS: Alert and Calm (0) kr3 08:37 Drug: Valium (diazepam) 2 mg Route: PO; kr3 10:13 Follow up: Response: No adverse reaction; RASS: Alert and Calm (0) kr3 Disposition: 16:16 Co-signature as Attending Physician, Sawyer Hyman MD I reviewed the patient's care rt provided by the Advanced Practice Provider and agree with the diagnosis and treatment plan. Disposition Summary: 07/19/22 10:02 Discharge Ordered Location: Home [facility] Condition: Stable jm Diagnosis - Sciatica, left side jmm Followup: [facility] - With: Joshua Jiménez DO - When: 2 - 3 days - Reason: Recheck today's complaints, Continuance of care, Re-evaluation by your physician Discharge Instructions: - Discharge Summary Sheet [facility] - Sciatica Rehab-SportsMed [facility] Forms: - Medication Reconciliation Form [facility] - Thank You Letter [facility] - Antibiotic Education [facility] - Prescription Opioid Use [facility] Prescriptions: - Zanaflex 4 mg Oral Tablet - take 1 tablet by ORAL route every 8 hours As needed; 20 tablet; Refills: 0, jmm Product Selection Permitted - Medrol (Magdy) 4 mg Oral Tablets, Dose Pack - take 1 tablet by ORAL route as directed - follow package instructions; 1 jmm packet; Refills: 0, Product Selection Permitted Signatures: Dispatcher [employer] EDKenji Mao PA PA jmm Reid, Kelley, RN RN kr3 Sawyer Hyman MD MD rt
[2022-07-19 10:18] VITALS: TEMP 98.6
[2022-07-19 10:21] VITALS: O2SAT 97
[2022-07-19 10:22] VITALS: BP 134/80
== END 2022-07-19 10:13 | disposition home or self-care (01) ==
LOC: ER 08:12
DX: M54.32 Sciatica, left side (principal); I10 Essential (primary) hypertension; F17.210 Nicotine dependence, cigarettes, uncomplicated; Z95.1 Presence of aortocoronary bypass graft
CPT/HCPCS: 72100; 93971; 99283

== ENCOUNTER 2022-09-22 07:49 | Day surgery (SDC) | payer MEDICARE ==
[2022-09-21 15:23] LABS: Absolute Lymphocytes (CBC) 2.2 K/uL (0.7-4.9); Hematocrit 40.6 % (39.6-49.0); Lymphocytes % 33.5 % (15.3-44.8); MCV 87.4 fL (80-100); MPV 7.5 fL (7.6-11.3); RBC Red Blood Cell Count 4.64 M/uL (4.33-5.43)
[2022-09-21 17:12] LABS: ALT/SGPT 24 U/L (16-61); AST/SGOT 18 U/L (15-37); Alkaline Phosphatase 78 U/L (45-117); BUN Blood Urea Nitrogen 13 mg/dL (7-18); Bicarbonate 28 mEq/L (21-32); Bilirubin Total 0.4 mg/dL (0.2-1.0); Glomerular Filtration Rate 91 ml/min (=/>90); Glucose Level 102 mg/dL (74-106); Potassium 4.5 mEq/L (3.5-5.1); Sodium Level 136 mEq/L (136-145)
[2022-09-21 17:13] LABS: Albumin 3.9 g/dL (3.4-5.0); Bilirubin Direct < 0.1 mg/dL (0-0.2); Lipase 32 U/L (13-75); Protein, Total 7.9 g/dL (6.4-8.2)
[2022-09-22] MEDS ORDERED: propofoL 200 MG/20 ML VIAL IV ONE (08:16)
[2022-09-22] MEDS ORDERED: Ringers Lactate 1,000 ML IV ONE (08:20)
[2022-09-22] MEDS ORDERED: MIDAZOLAM HCL 2 MG/2 ML INJ ONE (08:21)
[2022-09-22] MEDS ORDERED: ROCURONIUM 50 MG/5 ML VIAL IV ONE (08:21)
[2022-09-22] MEDS ORDERED: FENTANYL CITR 100 MCG/2 ML ONE (08:21)
[2022-09-22] MEDS ORDERED: LIDOCAINE 2% MPF 5 ML VIAL ONE ×2 (08:22→09:21)
[2022-09-22] MEDS ORDERED: KETOROLAC 30 MG/ML INJ ONE (08:22)
[2022-09-22] MEDS ORDERED: ONDANSETRON 4 MG/2 ML VIAL ONE (08:22)
[2022-09-22] MEDS ORDERED: CEFOXITIN SODIUM 1 GM/VIAL ONE (09:10)
[2022-09-22] MEDS ORDERED: GLYCOPYRROLATE 0.2 MG/ML SYR ONE (10:07)
[2022-09-22] MEDS ORDERED: NEOSTIGMINE 1 MG/ML -10 ML VIAL ONE (10:08)
[2022-09-22] MEDS ORDERED: SUGAMMADEX SODIUM 200 MG/2 ML VIAL IV ONE (10:23)
--- NOTE | 2022-09-22 10:37 | P.BOP ---
Preoperative diagnosis: symptomatic cholelithiasis Postoperative diagnosis: same, intrabdominal adhesions Primary procedure: Laparoscopic cholecystectomy, laparoscopic lysis of adhesions Switchboard Operator Assistant: ERWIN MOSER (PIPING DESIGNER) Estimated blood loss: <10cc Specimen: gb Anesthesia: General Complications: None Transferred to: Recovery Room
[2022-09-22 11:53] VITALS: BP 104/70; TEMP 96; O2SAT 97
--- NOTE | 2022-09-27 11:54 | DS ---
Date of Discharge: 09/22/2022 Diagnoses: Symptomatic cholelithiasis, intraabdominal adhesions. Procedures: Laparoscopic cholecystectomy, laparoscopic lysis of adhesions. Activity: As tolerated. No heavy lifting. Plan: Follow up in my office in 1 week. Call for appointment at [phone]. Condition: Stable. Medications: See orders. HM/MODL Voice ID: [id number] Report ID: [id number]
--- NOTE | 2022-09-27 11:54 | OP ---
Date of Procedure: 09/26/2022 Surgeon: Memo Hedrick MD Assembler Metal Building: AVA Schaefer. Preoperative Diagnosis: Symptomatic cholelithiasis. Postoperative Diagnoses: Symptomatic cholelithiasis plus intraabdominal adhesions. Procedures: Laparoscopic cholecystectomy, laparoscopic lysis of adhesions. Estimated Blood Loss: Less than 10 mL. Specimen: Gallbladder. Anesthesia: General plus local. Indication: This is the case of a 66-year-old patient, who comes to us with above diagnoses. Fully explained the benefit, alternatives, and risks of laparoscopic possible open cholecystectomy, which i nclude, but not limited to infection, bleeding, damage to adjacent structures, anesthesia complicatio n, choledocholithiasis, bile leak, pancreatitis, [place], and even . He also understands this may no t relieve any symptoms. He might need more than one surgical intervention. He understood, signed a consent. Procedure In Detail: The patient was brought to the operating room, placed in supine position. Anes thesia was done without complication. Abdominal area was prepped and draped in the usual sterile fas hion. Marcaine 0.5% was injected for local anesthetic followed by sharp incision of the skin in the infraumbilical region. The incision was carried down to fascia, which was opened under direct vision . Peritoneum was encountered, opened under direct vision. Vicryl #1 placed inside the fascia. Nacho on trocar was carefully introduced. Pneumoperitoneum was obtained. I placed 3 more trocars, 5 mm ea ch one of them on the epigastric area. We have to go sequentially because when we are going to that area, the patient has multiple adhesions in the right upper quadrant, so we put one 5 mm trocar and t hen with the help of LigaSure, we proceeded to remove adhesions that allowed me to put sequentials 5 mm trocar too more. We also used LigaSure to remove some adhesions once again over the area of the l iver. We were able to identify the gallbladder fundus and carefully removed some adhesions down from that area too and also adhesions to the liver. Without that, we were not be able to do the case so. After we did that lysis of adhesions, then we proceeded with the case that took about half of the t chinmay. At that moment, I proceeded to put a grasper in the fundus of the gallbladder, another grasper in the infundibulum, retracting the gallbladder in the inferolateral fashion, and obtaining critical view. The cystic duct and cystic artery were clearly isolated, freed circumferentially and a connect ion between those and the gallbladder were clearly identified. I proceeded to ligate those by using at least 3 clips proximal, 1 clip distal, ligation in middle. Same was done with the cystic artery. No bile leak. No bleeding. The gallbladder was removed from the liver using Bovie cauterizer and r emoved from the abdominal cavity using EndoCatch through the umbilical incision. The area was inspec erlinda once again. No bile leak. No bleeding. At that moment, I proceeded to remove the trocars under direct vision after obviously checking for lysis of adhesions to have no bleeding. We deflated pneu moperitoneum, closed the fascia with #1 Vicryl. We irrigated subcutaneous tissue closed, then approx imated the skin. Sponge count and instrument counts correct. The patient tolerated the procedure we ll. The patient was sent to recovery in stable condition. POLINA/KEYLA Voice ID: [id number] Report ID: [id number]
== END 2022-09-22 11:50 | disposition home or self-care (01) ==
LOC: PRE 07:49 → OR 11:50
PROVIDERS: ATTEND Surgery
PROC: 0DNU4ZZ Release Omentum, Percutaneous Endoscopic Approach (ICD-10-PCS; 2022-09-22)
PROC: 0FT44ZZ Resection of Gallbladder, Percutaneous Endoscopic Approach (ICD-10-PCS; principal; 2022-09-22 10:15)
DX: K80.10 Calculus of gallbladder with chronic cholecystitis without obstruction (principal); I10 Essential (primary) hypertension; E78.00 Pure hypercholesterolemia, unspecified; I51.9 Heart disease, unspecified; Z95.5 Presence of coronary angioplasty implant and graft; K66.0 Peritoneal adhesions (postprocedural) (postinfection)
CPT/HCPCS: 47600; 85025; 80048; 36415; 80076; 88304; 83690; 49329; J2704; J2710; J2001 ×2; J2250; J3010; J0694; J2405; J7120

== ENCOUNTER 2022-12-29 06:57 | Day surgery (SDC) | payer MEDICARE ==
[2022-12-29] MEDS ORDERED: NA CHLORIDE 0.9% 1,000 ML ONE (07:24)
[2022-12-29] MEDS ORDERED: propofoL 200 MG/20 ML VIAL IV ONE ×2 (08:41→08:42)
[2022-12-29] MEDS ORDERED: LIDOCAINE 1% MPF 2 ML AMPULE ONE (08:42)
[2022-12-29 11:09] VITALS: BP 113/73; TEMP 97.8; O2SAT 98
== END 2022-12-29 11:10 | disposition home or self-care (01) ==
LOC: OR 06:57
PROVIDERS: ATTEND Surgery
PROC: 0DJD8ZZ Inspection of Lower Intestinal Tract, Via Natural or Artificial Opening Endoscopic (ICD-10-PCS; principal; 2022-12-29 08:45)
DX: Z12.11 Encounter for screening for malignant neoplasm of colon (principal); K64.4 Residual hemorrhoidal skin tags; K64.8 Other hemorrhoids; K57.30 Diverticulosis of large intestine without perforation or abscess without bleeding
CPT/HCPCS: 82947; 45378; J2704 ×2; J7030